=== PATIENT | female | born 1935 | race Caucasian/White ===

== ENCOUNTER 2021-05-22 20:15 | Inpatient (IN) | payer MEDICARE, BC ==
[~2021-05-22] VITALS: Ht 162.6 cm; Wt 49.9 kg
--- NOTE | 2021-05-22 20:30 | NUR ---
Patient BIB [facility] from home for syncopal episode. Per EMS patient was sitting then stood up suddenly stating, "I feel dizzy". Patient sat back down and had a syncopal episode going incontinent in bladder. Daughter states the patient was out for a few minutes. Patient A/Ox3, but slow to respond. No acute neuro deficits noted. Denies any cardiovascular distress at this time, denies CP, palpitations. Respiratory even and unlabored, no reports of cough or sob. No GI/ distress noted. Patient in bed at lowest position, sr upx2, call light within reach. Fall and safety precautions implemented per protocol. Daughter at bedside accompanying patient.
--- NOTE | 2021-05-22 21:25 | NUR ---
Patient downgraded from NRB to NC at 5L
--- NOTE | 2021-05-22 21:30 | NUR ---
O2 removed completely to see if patient would tolerate being without supplemental O2. Patient was able to tolerate RA 96-100% with no signs of respiratory distress.
[2021-05-22 21:31] LABS: HEMATOCRIT 33.5 % (31.2-41.9); MEAN CORPUSCULAR HEMOGLOBIN 31.1 uug (24.7-32.8); MEAN CORPUSCULAR VOLUME 89.9 fL (75.5-95.3); PLATELET COUNT (AUTO) 185 K/uL (179-408)
[2021-05-22 21:59] LABS: BILIRUBIN,DIRECT 0.1 mg/dL (0.0-0.2); BILIRUBIN,TOTAL 0.3 mg/dL (0.2-1.0); POTASSIUM 3.5 mmol/L (3.5-5.1); TOTAL PROTEIN, SERUM 6.4 g/dL (6.4-8.2)
[2021-05-22] MEDS ORDERED: SWABABLE VALVE TRANSFER SET EA MC ONE (22:42)
[2021-05-22] MEDS ORDERED: IV NORMAL SALINE 250 ML IV ONE (22:43)
[2021-05-22] MEDS ORDERED: IOHEXOL 350 100 ML INFUS..BTL ONE (22:43)
--- NOTE | 2021-05-22 22:43 | NUR ---
Patient transported to CT in stable condition.
[2021-05-22] MEDS ORDERED: ALBUTEROL SULFATE 8 GM HFA.AER.AD IH PRN (23:00)
[2021-05-22] MEDS ORDERED: MORPHINE SULFATE 2 MG/1 ML DISP.SYRIN IV PRN (23:00)
[2021-05-22] MEDS ORDERED: LABETALOL HCL 100 MG/20 ML VIAL IV PRN (23:00)
[2021-05-22] MEDS ORDERED: ACETAMINOPHEN 325 MG TABLET PO PRN (23:00)
[2021-05-22] MEDS ORDERED: hydrALAZINE HCL 20 MG/1 ML VIAL IV PRN (23:00)
[2021-05-22] MEDS ORDERED: ONDANSETRON 4 MG/2 ML VIAL IV PRN (23:00)
--- NOTE | 2021-05-22 23:50 | NUR ---
Patient returned to patient care room.
[2021-05-23] MEDS ORDERED: MIRA50TA PO (00:31)
[2021-05-23] MEDS ORDERED: FENO145T21 PO (00:31)
[2021-05-23] MEDS ORDERED: ESCI10TA PO (00:31)
[2021-05-23] MEDS ORDERED: CANN100S TOP (00:31)
[2021-05-23] MEDS ORDERED: IPRA12.9 IH (00:31)
[2021-05-23] MEDS ORDERED: DULO30CA2 PO (00:31)
[2021-05-23] MEDS ORDERED: ACET-73 PO (00:31)
[2021-05-23] MEDS ORDERED: DOCU100C36 PO (00:31)
[2021-05-23] MEDS ORDERED: IPRA12.9 INH (00:31)
[2021-05-23] MEDS ORDERED: HYDR50TA4 PO (00:31)
[2021-05-23] MEDS ORDERED: AMLO10TA59 PO (00:31)
[2021-05-23] MEDS ORDERED: EZET10TA15 PO (00:31)
[2021-05-23] MEDS ORDERED: FAMO40TA71 PO (00:31)
[2021-05-23] MEDS ORDERED: DONE10TA44 PO (00:31)
[2021-05-23] MEDS ORDERED: POTA10CA43 PO (00:31)
[2021-05-23] MEDS ORDERED: ASPI81TA31 PO (00:31)
[2021-05-23] MEDS ORDERED: ATOR80TA PO (00:31)
[2021-05-23] MEDS ORDERED: DULO60CA45 PO (00:31)
[2021-05-23] MEDS ORDERED: TRAM50TA2 PO ×2 (00:31)
[2021-05-23] MEDS ORDERED: LEVO75TA PO (00:31)
[2021-05-23] MEDS ORDERED: DICL100G31 TP (00:31)
[2021-05-23] MEDS ORDERED: OLME40TA12 PO (00:31)
[2021-05-23] MEDS ORDERED: PANCREATIN PO (00:31)
[2021-05-23] MEDS ORDERED: SIME125C81 PO (00:31)
[2021-05-23] MEDS ORDERED: CLON1PAT TD (00:31)
[2021-05-23] MEDS ORDERED: CHOL2000 PO (00:31)
[2021-05-23] MEDS ORDERED: LEVO88TA5 PO (00:31)
--- NOTE | 2021-05-23 03:42 | NUR ---
pt voided on bedpan, clear yellow urine. pt transferred to hosp bed.
--- NOTE | 2021-05-23 06:54 | NUR ---
pt used bed smith, pt able to turn in bed. pt's daughter at bedside. patient and family aware of plan for the day. pt in stable condition.
--- NOTE | 2021-05-23 07:13 | NUR ---
endorsed report to day shift RN Jonathan. pt in stable condition, pt is admitted to tele awaiting a bed. pt's daughter is at bedside.
[2021-05-23] MEDS ORDERED: ALBUTEROL SULFATE 2.5 MG/3 ML NEBU NEB PRN (07:15)
--- NOTE | 2021-05-23 07:30 | NUR ---
PT IS RESTING IN BED COMFORTABLY. NO S/S OF ACUTE DISTRESS. PT's DOUGHTER AT THE BEDSIDE. CONTINUE TO MONITOR THE PT.
[2021-05-23] MEDS ORDERED: IV NS 1000 ML 1,000 ML IV PRN (08:15)
[2021-05-23] MEDS: LOSARTAN POTASSIUM 50 MG TABLET PO SCH ×2 (08:30→09:00)
[2021-05-23 08:58] LABS: BILIRUBIN,TOTAL 0.4 mg/dL (0.2-1.0); CREATININE 0.9 mg/dL (0.6-1.3); PHOSPHOROUS 3.4 mg/dL (2.5-4.9); POTASSIUM 4.1 mmol/L (3.5-5.1); TOTAL PROTEIN, SERUM 6.8 g/dL (6.4-8.2)
[2021-05-23 08:59] LABS: MEAN CORPUSCULAR HEMOGLOBIN 30.4 uug (24.7-32.8); MEAN CORPUSCULAR VOLUME 90.6 fL (75.5-95.3); PLATELET COUNT (AUTO) 194 K/uL (179-408)
[2021-05-23 16:37] VITALS: BP 126/68
--- NOTE | 2021-05-23 16:38 | NUR ---
PT WAS D/C'd TO HOME BY DR HARITHA HOOD. D/C INSTRUCTIONS GIVEN TO THE PT BY DR HARITHA Braun.
== END 2021-05-23 16:30 | disposition home or self-care (01) | DRG 312 ==
LOC: ER 20:26 → TRANSITION 05-23 07:00
PROVIDERS: ADMIT Internal Medicine; ATTEND Internal Medicine
DX: I95.2 Hypotension due to drugs (principal); N17.9 Acute kidney failure, unspecified; T46.5X5A Adverse effect of other antihypertensive drugs, initial encounter; Y92.009 Unspecified place in unspecified non-institutional (private) residence as the place of occurrence of the external cause; I10 Essential (primary) hypertension; I25.10 Atherosclerotic heart disease of native coronary artery without angina pectoris; Z95.5 Presence of coronary angioplasty implant and graft; R00.1 Bradycardia, unspecified; R09.02 Hypoxemia; E78.00 Pure hypercholesterolemia, unspecified; F03.90 Unspecified dementia, unspecified severity, without behavioral disturbance, psychotic disturbance, mood disturbance, and anxiety; M19.90 Unspecified osteoarthritis, unspecified site; Z86.74 Personal history of sudden cardiac arrest; Z79.890 Hormone replacement therapy; Z79.899 Other long term (current) drug therapy; Z98.61 Coronary angioplasty status; R11.10 Vomiting, unspecified; Z20.822 Contact with and (suspected) exposure to COVID-19
CPT/HCPCS: 36415; 70030-TC; 70450; 71045; 71275; 73060; 84100; 85025; 85730; 93005; 93307; 97161; A4663; G0378; J7050; Q9967